=== PATIENT | female | born 1965 | race Caucasian/White ===

== ENCOUNTER 2021-05-16 09:15 | Emergency (ER) | payer OTHER ==
--- NOTE | 2021-05-16 10:19 | CR ---
DATE OF SERVICE: 05/16/21 CLINICAL DATA: trauma LEFT WRIST: No priors. There is an impacted, comminuted, intra-articular fracture through the distal radius with dorsal displacement and dorsal angulation of the distal fragments with respect to the proximal. No other acute abnormalities. [id number] [facility]
--- NOTE | 2021-05-16 10:20 | EDM.PDOC ---
ED HPI GENERAL MEDICAL PROBLEM - General Chief Complaint: Upper Extremity Injury/Pain Stated Complaint: INJURY LEFT WRIST Time Seen by Provider: 05/16/21 09:50 Source of Information: Reports: Patient History Limitations: Reports: No Limitations - History of Present Illness INITIAL COMMENTS - FREE TEXT/NARRATIVE: This patient presents to the emergency department for evaluation of a left wrist injury. She states that she was hiking yesterday when she slipped and reached backwards to steady herself landing on an outstretched arm. She has an obvious deformity with moderate amount of swelling over the wrist joint. She denies other injuries, states she did not hit her head in the fall. The injury is less than 24 hours old. Of note, the patient is camping independently in the area and will be receiving the remainder of her health care in the [facility]. Onset: Sudden Onset Date: 05/15/21 Left Wrist Pain Score (Numeric/FACES): 2 - Related Data Allergies Allergy/AdvReac Type Severity Reaction Status Date / Time Penicillins Allergy Cannot Verified 05/16/21 09:21 Remember Home Meds: Home Meds NK [No Known Home Meds] 05/16/21 [History] Past Medical History - Past Health History Medical/Surgical History: Denies Medical/Surgical History Social & Family History - Family History Family Medical History: No Pertinent Family History - Tobacco Use Tobacco Use Status *Q: Never Tobacco User Review of Systems - Review of Systems Review Of Systems: See Below Constitutional: Reports: No Symptoms Ears: Reports: No Symptoms Nose: Reports: No Symptoms Mouth/Throat: Reports: No Symptoms Respiratory: Reports: No Symptoms Cardiovascular: Reports: No Symptoms GI/Abdominal: Reports: No Symptoms Skin: Reports: Other (Wrist pain) ED EXAM, GENERAL - Physical Exam Exam: See Below Exam Limited By: No Limitations General Appearance: Alert, No Apparent Distress Eye Exam: Bilateral Eye: Normal Inspection, PERRL Ears: Normal External Exam Nose: Normal Inspection Throat/Mouth: Normal Inspection Head: Atraumatic, Normocephalic Neck: Normal Inspection Respiratory/Chest: No Respiratory Distress, No Accessory Muscle Use Cardiovascular: Normal Peripheral Pulses Extremities: Normal Range of Motion (With exception of left wrist), Normal Cap illary Refill, Other (Left wrist: Moderate amount of swelling with obvious deformity. There is a small amount of ecchymotic tissue as well. Distal CMS is intact.) ED TRAUMA EXTREMITY PROCEDURES - Splinting Left Upper Extremity Pre-Procedure NV Status: Normal Post-Procedure NV Status: Normal Splint Material: Fiberglass Splint Design: Volar Applied & Form Fitted By: Provider (Doing fine slings) Provider Post-Splint Application NV Check: NV Status Normal Complications: No Progress/Comments: Patient was placed in sling as well. Course - Vital Signs Last Recorded V/S: Last Vital Signs Temp 36.9 C 05/16/21 09:24 Pulse 52 L 05/16/21 09:24 Resp 16 05/16/21 09:24 BP 151/80 H 05/16/21 09:24 Pulse Ox 99 05/16/21 09:24 - Re-Assessments/Exams Free Text/Narrative Re-Assessment/Exam: 05/16/21 10:24 This patient presents to the emergency department for evaluation of wrist pain after a fall. CMS is intact distally in the extremity. X-ray reveals a calm impacted fracture of the distal radius that will require reduction. She was placed in an Ortho-Glass posterior volar short arm splint with excellent CMS post placement. Close orthopedic follow-up is indicated in the next 4 to 5 days. She was provided with splint and fracture precautions for home. She was instructed to use ibuprofen for discomfort, keep her arm elevated and rest. The patient's head to toe trauma exam is otherwise normal at this time and no further trauma work-up is indicated. I believe there are no signs of serious head, neck, chest, spinal, extremity, or abdominal injuries warranting this. The patient was given copies of her emergency department documentation including x-rays to take with her to her primary care provider. The patient was stable at the time of discharge. Departure - Departure Time of Disposition: 10:30 Disposition: Home, Self-Care 01 Condition: Good Clinical Impression: Fracture, Fracture of radius, distal, closed - Discharge Information *PRESCRIPTION DRUG MONITORING PROGRAM REVIEWED*: No *COPY OF PRESCRIPTION DRUG MONITORING REPORT IN PATIENT YADIRA: No (Did we find a sling) Instructions: Wrist Fracture Treated With Immobilization, [id number] Referrals: PCP,None [Primary Care Provider] - Forms: ED Department Discharge Additional Instructions: Use ibuprofen, 600 mg every 6-8 hours as needed for discomfort and swelling. Apply ice packs to the area over the splint. Do not remove the splint unless your fingers become numb tingly or numb. If you do notice numbness or tingling in your fingers loosen the Alberto wrap but do not remove the splint. Rest with your arm on a pillow and elevation. Contact your healthcare provider for further instructions and referral to or thopedic specialist. You should be rechecked by an meeting specialist within 1 week. Sepsis Event Note (ED) - Focused Exam Vital Signs: Vital Signs Temp Pulse Resp BP Pulse Ox 05/16/21 09:24 36.9 C 52 L 16 151/80 H 99
== END 2021-05-16 10:28 | disposition home or self-care (01) ==
LOC: LB.ED 09:15
DX: S52.592A Other fractures of lower end of left radius, initial encounter for closed fracture (principal); Z88.0 Allergy status to penicillin; W01.0XXA Fall on same level from slipping, tripping and stumbling without subsequent striking against object, initial encounter; Y93.01 Activity, walking, marching and hiking
CPT/HCPCS: 29125; 73110-LT; 99283-25